=== PATIENT | male | born 1960 | race Caucasian/White ===

== ENCOUNTER 2017-01-04 15:01 | Emergency (ER) | payer BC ==
[~2017-01-04] VITALS: Ht 188 cm; Wt 87.5 kg
[2017-01-04] MEDS ORDERED: ASPIR-LOW81 MG PO (15:16)
[2017-01-04] MEDS ORDERED: PLAVIX75 MG PO (15:16)
--- NOTE | 2017-01-04 15:41 | EKG ---
[facility] [address] [facility] [place] [address] Signed Normal sinus rhythm Normal ECG No previous ECGs available Confirmed by NUNO ELLIS MD ([id number]) on 01/04/2017 3:41:05 PM Electronically Signed By: NUNO ELLIS MD 01/04/17 1541 PATIENT NAME: RIVER DICKERSON Electrocardiogram DATE OF : 62 PHYSICIAN: NUNO ELLIS MD REPORT #: [id number] REPORT IS CONFIDENTIAL AND NOT TO BE RELEASED WITHOUT AUTHORIZATION
== END 2017-01-04 16:42 | disposition home or self-care (01) ==
LOC: ED 15:01
DX: R07.89 Other chest pain (principal); I25.10 Atherosclerotic heart disease of native coronary artery without angina pectoris; Z95.5 Presence of coronary angioplasty implant and graft; Z79.82 Long term (current) use of aspirin; Z79.899 Other long term (current) drug therapy
CPT/HCPCS: 71020; 80053; 84484; 85025; 93005; 93010; 99284